=== PATIENT | female | born 1995 | race Caucasian/White ===

== ENCOUNTER 2021-10-12 20:08 | Inpatient (IN) ==
[2021-10-12] MEDS ORDERED: 0.9 % Sodium Chloride 1,000 ML IVC ONE (22:09)
[2021-10-12] MEDS ORDERED: Piperacillin/Tazobactam 3.375 GM in 0.9 % Sodium Chloride Mini Bag 100 ML IVPB ONE (22:11)
[2021-10-12 22:37] LABS: INR 1.7; Prothrombin Time 19.1 Seconds (9.4-12.1)
[2021-10-12 22:40] LABS: Activated Partial Thrombo Time 29.7 Seconds (26.0-36.0)
[2021-10-12 22:41] LABS: Hematocrit 22.3 % (35.3-44.9); Hemoglobin 7.6 g/dL (11.5-15.4); Mean Corpuscular HGB Conc 34.1 g/dL (31.6-35.5); Mean Corpuscular Hemoglobin 24.2 pg (28.0-33.3); Mean Platelet Volume 12.5 fL (9.4-12.4); Red Blood Count 3.14 M/mcL (3.82-4.97); Red Cell Distribution Width 16.8 % (11.5-14.5); White Blood Count 20.9 K/mcL (4.3-11.1)
[2021-10-12 22:52] LABS: Albumin 2.6 g/dL (3.5-5.7); Albumin/Globulin Ratio 0.5 (1.1-2.2); Bilirubin,Direct 1.1 mg/dL (0.0-0.2); Bilirubin,Indirect 0.5 mg/dL (0.0-1.0); Bilirubin,Total 1.6 mg/dL (0.3-1.0); Calcium 7.7 mg/dL (8.6-10.3); Globulin 5.6 g/dL (2.4-3.5); Magnesium 2.5 mg/dL (1.6-2.6); Potassium 3.3 mEq/L (3.5-5.1); Total Protein 8.2 g/dL (6.4-8.9); Troponin I 0.09 ng/mL (< 0.04)
[2021-10-12 22:57] LABS: Platelet Count 95 K/mcL (140-400)
[2021-10-12 22:59] LABS: Hypochromasia Present (Not Present); Ovalocytes 1+ (Not Present)
[2021-10-12 23:02] LABS: Target Cells 1+ (Not Present)
[2021-10-12 23:04] LABS: Lymphocytes # 0.4 K/mcL (0.6-4.6); Monocytes # 0.4 K/mcL (0.0-1.3); Neutrophils # 20.1 K/mcL (1.6-8.9)
[2021-10-12 23:05] LABS: Platelet Estimate Decreased (Normal); Toxic Granulation Present (Not Present)
[2021-10-13 01:00] LABS: Adenovirus Not Detected (Not Detect); Bordetella Pertussis Not Detected (Not Detect); Coronavirus 229E Not Detected (Not Detect); Coronavirus HKU1 Not Detected (Not Detect); Coronavirus NL63 Not Detected (Not Detect); Coronavirus OC43 DETECTED (Not Detect); Human Metapneumovirus Not Detected (Not Detect); Human Rhinovirus/Enterovirus Not Detected (Not Detect); Influenza A Subtype 2009 H1 Not Detected (Not Detect); Influenza B Not Detected (Not Detect); Parainfluenza Virus 1 Not Detected (Not Detect); Parainfluenza Virus 2 Not Detected (Not Detect); Parainfluenza Virus 3 Not Detected (Not Detect); Parainfluenza Virus 4 Not Detected (Not Detect); Respiratory Syncytial Virus Not Detected (Not Detect); SARS-CoV-2 Not Detected (Not Detect)
[2021-10-13 01:01] LABS: Chlamydophila pneumoniae Not Detected (Not Detect); Mycoplasma pneumoniae Not Detected (Not Detect)
[2021-10-13] MEDS ORDERED: Isovue-370 500 ML BOTTLE IVP ONE (01:39)
[2021-10-13] MEDS ORDERED: 0.9 % Sodium Chloride 1,000 ML IVC ONE (03:03)
[2021-10-13] MEDS ORDERED: Ondansetron ODT 4 MG TAB.RAPDIS SL PRN (03:33)
[2021-10-13] MEDS ORDERED: Naloxone 0.4 MG/ML INJ IVP PRN (03:33)
[2021-10-13] MEDS ORDERED: Melatonin 3 MG TABLET PO PRN (03:33)
[2021-10-13] MEDS ORDERED: *HR* LORazepam 2 MG/ML VIAL IVP ONE ×3 (03:41→06:45)
[2021-10-13 03:55] LABS: ABG Base Excess -10 mEq/L (-2 to 3); ABG HCO3 16 mEq/L (21-27); ABG Oxygen Saturation 95 % (95-98); ABG PCO2 31 mmHg (35-45); ABG PH 7.31 pH Units (7.32-7.45); ABG PO2 81 mmHg (85-104); ABG TCO2 17 mEq/L (20-26)
[2021-10-13] MEDS ORDERED: Ondansetron 4 MG/2 ML VIAL IVP PRN (04:42)
[2021-10-13] MEDS ORDERED: Perflutren Lipid Microsphere 1.3 ML in 0.9 % Sodium Chloride 8.7 ML IVP PRN (04:44)
[2021-10-13] MEDS ORDERED: Ipratropium/Albuterol Neb 3 ML IH PRN (04:49)
[2021-10-13] MEDS ORDERED: Vancomycin 1 EACH in 0.9 % Sodium Chloride 250 ML IVPB PRN (06:00)
[2021-10-13] MEDS: Calcium Gluconate 1gm/50mL 1 GM/50 ML BAG IVPB ONE ×2 (06:00→18:31)
[2021-10-13] MEDS: 0.9 % Sodium Chloride 1,000 ML IVC SCH ×3 (06:00→14:15)
[2021-10-13 06:39] LABS: Red Cell Distribution Width 17.1 % (11.5-14.5)
[2021-10-13 06:41] LABS: Estimated Average Glucose 123 mg/dl; Hematocrit 21.2 % (35.3-44.9); Hemoglobin 6.9 g/dL (11.5-15.4); Hemoglobin A1C 5.9 %; Immature Platelets 8.3 % (1.1-6.1); Mean Corpuscular HGB Conc 32.5 g/dL (31.6-35.5); Mean Corpuscular Hemoglobin 23.4 pg (28.0-33.3); Mean Corpuscular Volume 71.9 fL (83.0-100.0); Red Blood Count 2.95 M/mcL (3.82-4.97); White Blood Count 16.8 K/mcL (4.3-11.1)
[2021-10-13 06:43] LABS: Platelet Count 77 K/mcL (140-400)
[2021-10-13] MEDS ORDERED: *HR* LORazepam 2 MG/ML VIAL ONE (06:47)
[2021-10-13 06:48] LABS: Bacteria,Urine Moderate per hpf (None-Few); Bilirubin,Urine Negative (Negative); Blood,Urine Large (Negative); Budding Yeast,Urine Many per hpf (None Seen); Clarity,Urine Ex.Turbid (Clear); Color,Urine Yellow (Yellow); Glucose,Urine (UA) Normal (Normal); Ketones,Urine Negative (Negative); Leukocyte Esterase,Urine Trace (Negative); Nitrite,Urine Negative (Negative); PH,Urine 5.5 pH Units (5.0-8.0); Protein,Urine 70 mg/dL (Neg-Trace); RBC,Urine TNTC per hpf (0-3); Specific Gravity,Urine 1.017 (1.010-1.025); Urobilinogen,Urine Normal (Normal); WBC,Urine 30-50 per hpf (0-3)
[2021-10-13 06:52] LABS: Amphetamine Screen,Urine Negative ng/mL (Cutoff=1000); Barbiturate Screen,Urine Negative ng/mL (Cutoff=200); Benzodiazepines Screen,Urine Negative ng/mL (Cutoff=300); Cannabinoid Screen,Urine Negative ng/mL (Cutoff = 50); Cocaine Screen,Urine Negative ng/mL (Cutoff= 300); Opiate Screen,Urine Negative ng/mL (Cutoff=300); Phencyclidine Screen,Urine Negative ng/mL (Cutoff=25)
[2021-10-13 07:02] LABS: Calcium 7.6 mg/dL (8.6-10.3); Phosphorous 8.7 mg/dL (2.7-4.5); Potassium 3.1 mEq/L (3.5-5.1)
[2021-10-13 07:04] LABS: Albumin 2.4 g/dL (3.5-5.7); Albumin/Globulin Ratio 0.5 (1.1-2.2); Bilirubin,Direct 1.5 mg/dL (0.0-0.2); Bilirubin,Indirect 0.2 mg/dL (0.0-1.0); Bilirubin,Total 1.7 mg/dL (0.3-1.0); Globulin 4.9 g/dL (2.4-3.5); Total Protein 7.3 g/dL (6.4-8.9)
[2021-10-13 07:16] LABS: Thyroid Stimulating Hormone 0.441 mcIU/mL (0.340-5.600)
[2021-10-13 07:17] LABS: Chloride,Urine < 15 mEq/L; Sodium, Urine 10.7 mEq/L
[2021-10-13 07:17] LABS: Cholesterol 58 mg/dL (< 200); HDL Cholesterol < 3 mg/dL (40-59); Triglycerides 179 mg/dL (< 150)
[2021-10-13 07:18] LABS: Iron < 10 mcg/dL (50-170); Lactate Dehydrogenase 335 Units/L (140-271); Transferrin 159 mg/dL (203-362)
[2021-10-13 08:09] LABS: Lymphocytes # 0.3 K/mcL (0.6-4.6); Monocytes # 0.7 K/mcL (0.0-1.3); Neutrophils # 15.8 K/mcL (1.6-8.9)
[2021-10-13 08:11] LABS: Anisocytosis 1+ (Not Present); Hypochromasia Present (Not Present); Platelet Estimate Decreased (Normal)
[2021-10-13] MEDS ORDERED: 0.9 % Sodium Chloride 250 ML IVC SCH (08:15)
[2021-10-13] MEDS ORDERED: FentaNYL (PF) 1,000 MCG/100 ML IV.SOLN ONE (08:24)
[2021-10-13] MEDS ORDERED: Artificial Tears SOLN 15 ML BOTTLE BOTH EYES PRN (08:28)
[2021-10-13 09:00] LABS: Acinetobacter baumannii by PCR Not Detected (Not Detect); Candida albicans by PCR Not Detected (Not Detect); Candida glabrata by PCR Not Detected (Not Detect); Candida krusei by PCR Not Detected (Not Detect); Candida parapsilosis by PCR Not Detected (Not Detect); Candida tropicalis by PCR Not Detected (Not Detect); Enterobacter cloacae Cmplx PCR Not Detected (Not Detect); Enterobacteriaceae by PCR Not Detected (Not Detect); Enterococcus by PCR Not Detected (Not Detect); Escherichia coli by PCR Not Detected (Not Detect); Klebsiella oxytoca by PCR Not Detected (Not Detect); Klebsiella pneumoniae by PCR Not Detected (Not Detect); Proteus by PCR Not Detected (Not Detect); Pseudomonas aeruginosa by PCR Not Detected (Not Detect); Serratia marcescens by PCR Not Detected (Not Detect); Staphylococcus aureus by PCR DETECTED (Not Detect); Streptococcus agalactiae(B)PCR Not Detected (Not Detect); Streptococcus pneumoniae PCR Not Detected (Not Detect); Streptococcus pyogenes (A) PCR DETECTED (Not Detect); mecA Methicillin-Resist Gene Not Detected (Not Detect)
[2021-10-13] MEDS: FentaNYL (PF) 1,000 MCG/100 ML IV.SOLN IVC SCH ×4 (09:00→23:51)
[2021-10-13 09:29] LABS: ABG Base Excess -9 mEq/L (-2 to 3); ABG HCO3 17 mEq/L (21-27); ABG Oxygen Saturation 100 % (95-98); ABG PCO2 40 mmHg (35-45); ABG PH 7.24 pH Units (7.32-7.45); ABG PO2 331 mmHg (85-104); ABG TCO2 19 mEq/L (20-26); Blood Gas Modality ASSIST CONTROL; Blood Gas VT 400 cc
[2021-10-13] MEDS ORDERED: E-Z-HD (BARIUM SULF) SUSPENSION PO ONE (09:41)
[2021-10-13] MEDS ORDERED: E-Z-PAQUE (BARIUM SULF) SUSP 1 BOTTLE PO ONE (09:41)
[2021-10-13] MEDS ORDERED: Simethicone/Sodium Bic/Citr Ac 1 EACH GRAN.EF.PK PO ONE (09:41)
[2021-10-13] MEDS ORDERED: Permethrin Cream Rinse 60 ML LIQUID TP ONE (10:33)
[2021-10-13] MEDS: Piperacillin/Tazobactam 3.375 GM in 0.9 % Sodium Chloride Mini Bag 100 ML IVPB SCH ×2 (10:51→22:42)
[2021-10-13] MEDS: Pantoprazole 40 MG VIAL IVP SCH (10:52)
[2021-10-13] MEDS: Clindamycin 900 MG/50 ML 900 MG/50 ML IV.SOLN IVPB SCH ×2 (10:53→17:39)
[2021-10-13] MEDS: Chlorhexidine Rinse 15 ML MOUTHWASH MM SCH ×2 (10:53→19:55)
[2021-10-13] MEDS: Artificial Tears SOLN 15 ML BOTTLE BOTH EYES SCH ×4 (11:25→23:49)
[2021-10-13 12:02] LABS: VBG Ionized Calcium 0.96 mmol/L (1.15-1.35)
[2021-10-13 12:02] LABS: Hematocrit 18.9 % (35.3-44.9); Hemoglobin 6.1 g/dL (11.5-15.4); Mean Corpuscular HGB Conc 32.3 g/dL (31.6-35.5); Mean Corpuscular Hemoglobin 23.2 pg (28.0-33.3); Mean Corpuscular Volume 71.9 fL (83.0-100.0); Red Blood Count 2.63 M/mcL (3.82-4.97); Red Cell Distribution Width 17.2 % (11.5-14.5); White Blood Count 12.9 K/mcL (4.3-11.1)
[2021-10-13 12:04] LABS: Platelet Count 71 K/mcL (140-400)
[2021-10-13 12:24] LABS: Albumin 2.2 g/dL (3.5-5.7); Albumin/Globulin Ratio 0.5 (1.1-2.2); Bilirubin,Direct 1.1 mg/dL (0.0-0.2); Bilirubin,Indirect 0.4 mg/dL (0.0-1.0); Bilirubin,Total 1.5 mg/dL (0.3-1.0); Calcium 7.3 mg/dL (8.6-10.3); Globulin 4.5 g/dL (2.4-3.5); Magnesium 2.5 mg/dL (1.6-2.6); Phosphorous 8.6 mg/dL (2.7-4.5); Total Protein 6.7 g/dL (6.4-8.9)
[2021-10-13 12:35] LABS: Lymphocytes # 1.3 K/mcL (0.6-4.6); Monocytes # 0.3 K/mcL (0.0-1.3); Neutrophils # 11.4 K/mcL (1.6-8.9); Platelet Estimate Decreased (Normal)
[2021-10-13 12:36] LABS: Anisocytosis 1+ (Not Present); Hypochromasia Present (Not Present)
[2021-10-13] MEDS: *HR* Heparin 5,000 UNIT/ML VIAL SQ SCH ×2 (13:14→17:40)
[2021-10-13] MEDS ORDERED: Potassium Chloride Elixir 20 MEQ/15 ML UDC GTUBE ONE (14:22)
[2021-10-13] MEDS ORDERED: Calcium Gluconate 1gm/50mL 1 GM/50 ML BAG IVPB SCH (14:30)
[2021-10-13 15:20] LABS: INR 1.9; Prothrombin Time 20.6 Seconds (9.4-12.1)
[2021-10-13 15:23] LABS: Activated Partial Thrombo Time 29.1 Seconds (26.0-36.0)
[2021-10-13 16:06] LABS: Hepatitis B Surface Antigen Nonreactive (Nonreactive)
[2021-10-13 16:35] LABS: HIV-1&2 Antibody & p24 Ag Nonreactive (Nonreactive)
[2021-10-13 16:36] LABS: Hepatitis A Antibody IgM Nonreactive (Nonreactive); Hepatitis B Core IgM Nonreactive (Nonreactive)
[2021-10-13] MEDS: Norepinephrine 4 MG/254 ML IV.SOLN IVC SCH ×3 (17:30→23:48)
[2021-10-13 17:59] LABS: Hepatitis C Virus Antibody Reactive (Nonreactive)
[2021-10-13] MEDS ORDERED: *HR* Propofol 200 MG/20 ML VIAL IVP ONE (21:37)
[2021-10-13] MEDS ORDERED: *HR* Midazolam HCl 5 MG/5 ML VIAL IVP ONE (21:37)
[2021-10-13] MEDS ORDERED: *HR* Midazolam HCl 2 MG/2 ML VIAL IVP ONE (21:37)
[2021-10-13] MEDS ORDERED: *HR* Etomidate 20 MG/10 ML AMPUL IVP ONE (21:37)
[2021-10-13 22:25] LABS: Appearance of Body Fluid Hazy (Clear); Source of Body Fluid RIGHT UPPER LOBE LUN; Volume of Body Fluid 25 mL
[2021-10-14] MEDS: Clindamycin 900 MG/50 ML 900 MG/50 ML IV.SOLN IVPB SCH ×3 (02:06→20:09)
[2021-10-14 03:10] LABS: VBG Ionized Calcium 1.01 mmol/L (1.15-1.35)
[2021-10-14 03:29] LABS: Hematocrit 23.4 % (35.3-44.9); Immature Platelets 6.8 % (1.1-6.1); Mean Corpuscular HGB Conc 32.5 g/dL (31.6-35.5); Mean Corpuscular Hemoglobin 24.1 pg (28.0-33.3); Mean Corpuscular Volume 74.1 fL (83.0-100.0); Mean Platelet Volume 11.7 fL (9.4-12.4); Nucleated Red Blood Cells 0.1 /100 WBC (0); Red Blood Count 3.16 M/mcL (3.82-4.97); Red Cell Distribution Width 17.3 % (11.5-14.5); White Blood Count 21.5 K/mcL (4.3-11.1)
[2021-10-14] MEDS: Artificial Tears SOLN 15 ML BOTTLE BOTH EYES SCH ×6 (03:38→23:32)
[2021-10-14 03:41] LABS: Platelet Count 89 K/mcL (140-400)
[2021-10-14 03:42] LABS: Hemoglobin 7.6 g/dL (11.5-15.4)
[2021-10-14 03:47] LABS: Blood Urea Nitrogen > 130 mg/dL (6-20); Calcium 7.6 mg/dL (8.6-10.3); Carbon Dioxide 14 mEq/L (23-29); Chloride 101 mEq/L (98-107); Creatine Kinase 22 Units/L (30-223); Glucose 119 mg/dL (70-105); Magnesium 2.8 mg/dL (1.6-2.6); Phosphorous 8.1 mg/dL (2.7-4.5); Potassium 3.4 mEq/L (3.5-5.1); Sodium 132 mEq/L (136-145); eGFR For African Americans 14 (> 60); eGFR For Non-African Americans 11 (> 60)
[2021-10-14 03:54] LABS: ABG Base Excess -11 mEq/L (-2 to 3); ABG HCO3 15 mEq/L (21-27); ABG Oxygen Saturation 99 % (95-98); ABG PCO2 34 mmHg (35-45); ABG PH 7.25 pH Units (7.32-7.45); ABG PO2 153 mmHg (85-104); ABG TCO2 16 mEq/L (20-26); Blood Gas VT 450 cc
[2021-10-14] MEDS: FentaNYL (PF) 1,000 MCG/100 ML IV.SOLN IVC SCH ×2 (04:17→09:22)
[2021-10-14] MEDS: Norepinephrine 4 MG/254 ML IV.SOLN IVC SCH ×3 (04:18→13:41)
[2021-10-14 04:27] LABS: Lymphocytes # 2.2 K/mcL (0.6-4.6); Monocytes # 0.2 K/mcL (0.0-1.3); Neutrophils # 19.1 K/mcL (1.6-8.9); Platelet Estimate Decreased (Normal)
[2021-10-14] MEDS: *HR* Heparin 5,000 UNIT/ML VIAL SQ SCH (05:49)
[2021-10-14] MEDS: Potassium Chloride 40 MEQ/200 ML BAG IVPB PRN ×4 (05:50→23:39)
[2021-10-14] MEDS: Calcium Gluconate 1gm/50mL 1 GM/50 ML BAG IVPB PRN ×3 (06:22→23:39)
[2021-10-14] MEDS: Sodium Bicarbonate 150 MEQ in D5% in Water 1,000 ML IVC SCH ×2 (06:41→21:49)
[2021-10-14] MEDS: Chlorhexidine Rinse 15 ML MOUTHWASH MM SCH ×2 (08:32→20:09)
[2021-10-14] MEDS: Pantoprazole 40 MG VIAL IVP SCH (08:32)
[2021-10-14] MEDS: Piperacillin/Tazobactam 3.375 GM in 0.9 % Sodium Chloride Mini Bag 100 ML IVPB SCH ×2 (10:30→23:18)
[2021-10-14] MEDS ORDERED: 0.9 % Sodium Chloride 1,000 ML PRIME ONE ×2 (12:25)
[2021-10-14] MEDS ORDERED: *HR* Heparin 5,000 UNIT/ML VIAL IVP PRN ×5 (12:25→13:33)
[2021-10-14] MEDS ORDERED: *HR* Alteplase (Cathflo) 2 MG VIAL IVP PRN (12:25)
[2021-10-14] MEDS ORDERED: Heparin 25,000UNIT/250ML 1/2NS 25,000 UNIT/250 ML IV.SOLN IVC SCH ×2 (12:30→14:15)
[2021-10-14] MEDS ORDERED: 0.9 % Sodium Chloride 1,000 ML PRIME SCH (12:30)
[2021-10-14] MEDS ORDERED: Vancomycin 1,250 MG/262.5 ML IV.SOLN IVPB ONE (13:00)
[2021-10-14] MEDS ORDERED: Vancomycin 500 MG in 0.9 % Sodium Chloride Mini Bag 100 ML IVPB ONE ×2 (14:00→16:00)
[2021-10-14] MEDS: PrismaSATE BGK 4/2.5 5,000 ML CRRT SCH ×6 (14:45→22:43)
[2021-10-14 15:07] LABS: VBG Ionized Calcium 0.98 mmol/L (1.15-1.35)
[2021-10-14 15:22] LABS: Albumin/Globulin Ratio 0.5 (1.1-2.2); Bilirubin,Total 1.4 mg/dL (0.3-1.0); Calcium 7.1 mg/dL (8.6-10.3); Globulin 4.3 g/dL (2.4-3.5); Magnesium 2.7 mg/dL (1.6-2.6); Potassium 3.3 mEq/L (3.5-5.1); Total Protein 6.3 g/dL (6.4-8.9)
[2021-10-14] MEDS: Norepinephrine 8 MG/258 ML IV.SOLN IVC SCH (17:01)
[2021-10-14 18:20] LABS: Hemoglobin 7.4 g/dL (11.5-15.4); Red Cell Distribution Width 17.8 % (11.5-14.5)
[2021-10-14 18:21] LABS: Hematocrit 22.7 % (35.3-44.9); Immature Platelets 7.4 % (1.1-6.1); Mean Corpuscular HGB Conc 32.6 g/dL (31.6-35.5); Mean Corpuscular Hemoglobin 23.9 pg (28.0-33.3); Mean Corpuscular Volume 73.2 fL (83.0-100.0); Mean Platelet Volume 11.5 fL (9.4-12.4); Red Blood Count 3.1 M/mcL (3.82-4.97); White Blood Count 15.1 K/mcL (4.3-11.1)
[2021-10-14 18:32] LABS: Heparin anti-factor XA UFH < 0.04 IU/mL (0.30-0.70); INR 1.5; Prothrombin Time 16.4 Seconds (9.4-12.1)
[2021-10-14] MEDS: Vasopressin 40 UNIT in D5% in Water 100 ML IVC SCH (19:22)
[2021-10-14] MEDS: Dexmedetomidine HCl 400 MCG/100 ML MLS IVC SCH (19:22)
[2021-10-14] MEDS: Phenylephrine 10 MG in 0.9 % Sodium Chloride 250 ML IVC SCH (19:22)
[2021-10-14] MEDS: FentaNYL (PF) 2,500 MCG/50 ML IV.SOLN IVC SCH ×2 (19:23→20:08)
[2021-10-14 22:25] LABS: VBG Ionized Calcium 1.03 mmol/L (1.15-1.35)
[2021-10-14 22:44] LABS: Calcium 7.2 mg/dL (8.6-10.3); Potassium 3.6 mEq/L (3.5-5.1)
[2021-10-15] MEDS: FentaNYL (PF) 2,500 MCG/50 ML IV.SOLN IVC SCH ×2 (01:55→13:42)
[2021-10-15] MEDS: Norepinephrine 8 MG/258 ML IV.SOLN IVC SCH ×4 (02:27→22:00)
[2021-10-15] MEDS: Clindamycin 900 MG/50 ML 900 MG/50 ML IV.SOLN IVPB SCH ×3 (02:29→17:30)
[2021-10-15] MEDS: PrismaSATE BGK 4/2.5 5,000 ML CRRT SCH ×12 (02:49→23:14)
[2021-10-15] MEDS: Artificial Tears SOLN 15 ML BOTTLE BOTH EYES SCH ×6 (03:17→23:54)
[2021-10-15 03:59] LABS: Hematocrit 24.4 % (35.3-44.9); Hemoglobin 8.1 g/dL (11.5-15.4); Mean Corpuscular HGB Conc 33.2 g/dL (31.6-35.5); Mean Corpuscular Hemoglobin 23.8 pg (28.0-33.3); Mean Corpuscular Volume 71.8 fL (83.0-100.0); Mean Platelet Volume 11.4 fL (9.4-12.4); Red Cell Distribution Width 17.8 % (11.5-14.5); White Blood Count 13.2 K/mcL (4.3-11.1)
[2021-10-15 04:00] LABS: Platelet Count 75 K/mcL (140-400)
[2021-10-15 04:16] LABS: VBG Ionized Calcium 1.04 mmol/L (1.15-1.35)
[2021-10-15 04:19] LABS: BUN/Creatinine Ratio 25 (6-26); Blood Urea Nitrogen 62 mg/dL (6-20); Calcium 7.5 mg/dL (8.6-10.3); Carbon Dioxide 22 mEq/L (23-29); Chloride 100 mEq/L (98-107); Glucose 114 mg/dL (70-105); Magnesium 2.3 mg/dL (1.6-2.6); Osmolality,Calculated 292 (280-300); Phosphorous 2.8 mg/dL (2.7-4.5); Potassium 4.1 mEq/L (3.5-5.1); Sodium 132 mEq/L (136-145); eGFR For African Americans 28 (> 60); eGFR For Non-African Americans 23 (> 60)
[2021-10-15 04:30] LABS: Lymphocytes # 1.3 K/mcL (0.6-4.6); Monocytes # 0.1 K/mcL (0.0-1.3); Neutrophils # 11.8 K/mcL (1.6-8.9); Platelet Estimate Decreased (Normal); Reactive Lymphocytes Present (Not Present)
[2021-10-15 04:55] LABS: ABG Base Excess 0 mEq/L (-2 to 3); ABG HCO3 23 mEq/L (21-27); ABG Oxygen Saturation 97 % (95-98); ABG PCO2 32 mmHg (35-45); ABG PH 7.47 pH Units (7.32-7.45); ABG PO2 81 mmHg (85-104); ABG TCO2 24 mEq/L (20-26); Blood Gas Modality ASSIST CONTROL; Blood Gas VT 450 cc
[2021-10-15] MEDS: Calcium Gluconate 1gm/50mL 1 GM/50 ML BAG IVPB PRN ×2 (06:10→22:30)
[2021-10-15] MEDS: Pantoprazole 40 MG VIAL IVP SCH (07:57)
[2021-10-15] MEDS: Chlorhexidine Rinse 15 ML MOUTHWASH MM SCH ×3 (07:57→20:17)
[2021-10-15 08:13] LABS: Troponin I < 0.03 ng/mL (< 0.04)
[2021-10-15] MEDS: *HR* Heparin 5,000 UNIT/ML VIAL SQ SCH ×2 (09:39→17:30)
[2021-10-15] MEDS: Piperacillin/Tazobactam 3.375 GM in 0.9 % Sodium Chloride Mini Bag 100 ML IVPB SCH (11:50)
[2021-10-15] MEDS: Vasopressin 40 UNIT in D5% in Water 100 ML IVC SCH (12:52)
[2021-10-15] MEDS: Phenylephrine 10 MG in 0.9 % Sodium Chloride 250 ML IVC SCH (12:53)
[2021-10-15] MEDS: Dexmedetomidine HCl 400 MCG/100 ML MLS IVC SCH (12:54)
[2021-10-15 14:05] LABS: Hemoglobin 8.4 g/dL (11.5-15.4)
[2021-10-15 14:07] LABS: Hematocrit 25.5 % (35.3-44.9); Immature Platelets 12.2 % (1.1-6.1); Mean Corpuscular HGB Conc 32.9 g/dL (31.6-35.5); Mean Corpuscular Hemoglobin 23.8 pg (28.0-33.3); Mean Corpuscular Volume 72.2 fL (83.0-100.0); Mean Platelet Volume 11.2 fL (9.4-12.4); Red Blood Count 3.53 M/mcL (3.82-4.97); Red Cell Distribution Width 18.1 % (11.5-14.5); White Blood Count 20.2 K/mcL (4.3-11.1)
[2021-10-15 14:17] LABS: INR 1.5
[2021-10-15 14:18] LABS: Platelet Count 71 K/mcL (140-400)
[2021-10-15 14:20] LABS: Activated Partial Thrombo Time 31.8 Seconds (26.0-36.0)
[2021-10-15 14:26] LABS: BUN/Creatinine Ratio 20 (6-26); Blood Urea Nitrogen 39 mg/dL (6-20); Calcium 7.5 mg/dL (8.6-10.3); Carbon Dioxide 23 mEq/L (23-29); Chloride 100 mEq/L (98-107); Cholesterol 75 mg/dL (< 200); Glucose 115 mg/dL (70-105); HDL Cholesterol < 3 mg/dL (40-59); Osmolality,Calculated 282 (280-300); Potassium 4.2 mEq/L (3.5-5.1); Sodium 131 mEq/L (136-145); Triglycerides 248 mg/dL (< 150); eGFR For African Americans 37 (> 60); eGFR For Non-African Americans 31 (> 60)
[2021-10-15 14:28] LABS: Estimated Average Glucose 126 mg/dl
[2021-10-15 14:33] LABS: Eosinophils # 0.2 K/mcL (0.0-0.6); Lymphocytes # 4.2 K/mcL (0.6-4.6); Monocytes # 0.8 K/mcL (0.0-1.3); Reactive Lymphocytes Present (Not Present)
[2021-10-15 14:34] LABS: Anisocytosis 1+ (Not Present); Hypochromasia Present (Not Present); Platelet Estimate Slight Decrease (Normal)
[2021-10-15 14:35] LABS: Target Cells 1+ (Not Present)
[2021-10-15 15:04] LABS: Vancomycin,Random 7 mcg/mL
[2021-10-15] MEDS: ceFAZolin 2,000 MG in 0.9 % Sodium Chloride 100 ML IVPB SCH (17:30)
[2021-10-15 21:40] LABS: VBG Ionized Calcium 1.01 mmol/L (1.15-1.35)
[2021-10-16] MEDS: Clindamycin 900 MG/50 ML 900 MG/50 ML IV.SOLN IVPB SCH ×2 (02:27→11:30)
[2021-10-16] MEDS: FentaNYL (PF) 2,500 MCG/50 ML IV.SOLN IVC SCH (02:27)
[2021-10-16] MEDS: PrismaSATE BGK 4/2.5 5,000 ML CRRT SCH ×2 (03:14)
[2021-10-16] MEDS: Artificial Tears SOLN 15 ML BOTTLE BOTH EYES SCH ×4 (03:26→20:58)
[2021-10-16 03:32] LABS: Hemoglobin 8.2 g/dL (11.5-15.4); Red Cell Distribution Width 18.8 % (11.5-14.5)
[2021-10-16 03:34] LABS: Basophils % 0.2 %; Eosinophils # 0.1 K/mcL (0.0-0.6); Eosinophils % 0.5 %; Hematocrit 25.7 % (35.3-44.9); Immature Granulocytes % 2.1 % (0-4); Immature Platelets 10.9 % (1.1-6.1); Lymphocytes # 2.4 K/mcL (0.6-4.6); Lymphocytes % 12.5 %; Mean Corpuscular HGB Conc 31.9 g/dL (31.6-35.5); Mean Corpuscular Hemoglobin 23.8 pg (28.0-33.3); Mean Corpuscular Volume 74.5 fL (83.0-100.0); Mean Platelet Volume 11.4 fL (9.4-12.4); Monocytes # 0.4 K/mcL (0.0-1.3); Monocytes % 1.9 %; Neutrophils # 15.7 K/mcL (1.6-8.9); Nucleated Red Blood Cells 0.2 /100 WBC (0); Red Blood Count 3.45 M/mcL (3.82-4.97); Segmented Neutrophils % 82.8 %; White Blood Count 18.9 K/mcL (4.3-11.1)
[2021-10-16 03:39] LABS: Platelet Count 85 K/mcL (140-400)
[2021-10-16 03:40] LABS: VBG Ionized Calcium 1.07 mmol/L (1.15-1.35)
[2021-10-16 03:51] LABS: Albumin 2.1 g/dL (3.5-5.7); Albumin/Globulin Ratio 0.4 (1.1-2.2); Bilirubin,Total 1.4 mg/dL (0.3-1.0); Calcium 7.6 mg/dL (8.6-10.3); Magnesium 2.3 mg/dL (1.6-2.6); Phosphorous 2.8 mg/dL (2.7-4.5); Potassium 4.4 mEq/L (3.5-5.1); Total Protein 7.1 g/dL (6.4-8.9)
[2021-10-16 03:59] LABS: ABG Base Excess 0 mEq/L (-2 to 3); ABG HCO3 24 mEq/L (21-27); ABG Oxygen Saturation 96 % (95-98); ABG PCO2 34 mmHg (35-45); ABG PH 7.45 pH Units (7.32-7.45); ABG PO2 77 mmHg (85-104); ABG TCO2 25 mEq/L (20-26); Blood Gas VT 450 cc
[2021-10-16 04:01] LABS: Activated Partial Thrombo Time 30.6 Seconds (26.0-36.0); INR 1.4; Prothrombin Time 15.8 Seconds (9.4-12.1)
[2021-10-16 04:30] LABS: Hypochromasia Present (Not Present); Platelet Estimate Decreased (Normal)
[2021-10-16 04:31] LABS: Anisocytosis 1+ (Not Present)
[2021-10-16] MEDS: Calcium Gluconate 1gm/50mL 1 GM/50 ML BAG IVPB PRN (04:42)
[2021-10-16] MEDS: Norepinephrine 8 MG/258 ML IV.SOLN IVC SCH ×2 (04:52→14:59)
[2021-10-16] MEDS: ceFAZolin 2,000 MG in 0.9 % Sodium Chloride 100 ML IVPB SCH (05:46)
[2021-10-16] MEDS: *HR* Heparin 5,000 UNIT/ML VIAL SQ SCH (05:47)
[2021-10-16] MEDS: Chlorhexidine Rinse 15 ML MOUTHWASH MM SCH ×2 (05:52→07:49)
[2021-10-16] MEDS ORDERED: Aspirin 81 MG TAB.CHEW PO ONE (06:00)
[2021-10-16] MEDS ORDERED: Vancomycin 1,250 MG/262.5 ML IV.SOLN IVPB ONE (06:00)
[2021-10-16] MEDS ORDERED: *HR* Vasopressin 20 UNIT/ML VIAL ONE (06:45)
[2021-10-16] MEDS ORDERED: NiCARdipine 2.5 MG/10 ML Syringe IVPB ONE (06:46)
[2021-10-16] MEDS ORDERED: *HR* FentaNYL (PF) 1,000 MCG/20 ML VIAL ONE (06:49)
[2021-10-16] MEDS ORDERED: *HR* Midazolam HCl 5 MG/5 ML VIAL IVP ONE (06:49)
[2021-10-16] MEDS ORDERED: Lidocaine 2% Syringe 100 MG/5 ML ONE (06:50)
[2021-10-16] MEDS ORDERED: *HR* Magnesium Sulfate 1 GM/2 ML VIAL ONE ×2 (06:50→12:40)
[2021-10-16] MEDS ORDERED: Famotidine 20 MG/2 ML VIAL ONE (06:50)
[2021-10-16] MEDS ORDERED: *HR* Rocuronium Bromide 50 MG/5 ML VIAL ONE ×4 (06:50→13:19)
[2021-10-16] MEDS ORDERED: Tranexamic Acid 1,000 MG/10 ML VIAL ONE (06:50)
[2021-10-16] MEDS ORDERED: *HR* Etomidate 20 MG/10 ML AMPUL IVP ONE (06:52)
[2021-10-16] MEDS ORDERED: SODIUM CHLORIDE IRRIGATION IR ONE ×2 (07:30→14:44)
[2021-10-16] MEDS ORDERED: del Nido Cardioplegia Solution PF ONE (07:30)
[2021-10-16] MEDS ORDERED: HEPARIN IR ONE ×2 (07:30→14:44)
[2021-10-16] MEDS ORDERED: Heparin 15,000 UNIT in 0.9 % Sodium Chloride 500 ML IV ONE ×2 (07:30→14:44)
[2021-10-16] MEDS ORDERED: Norepinephrine 4 MG in 0.9 % Sodium Chloride 250 ML IVC PRN ×2 (07:30→14:44)
[2021-10-16] MEDS ORDERED: del Nido Cardioplegia Solution PF SCH (07:30)
[2021-10-16] MEDS ORDERED: Buckersberg's Blood Cardioplegia PF SCH (07:30)
[2021-10-16] MEDS: Pantoprazole 40 MG VIAL IVP SCH (07:49)
[2021-10-16 08:43] LABS: ABG Base Excess -2 mEq/L (-2 to 3); ABG Chloride 104 mEq/L (98-107); ABG Glucose 93 mg/dL (60-95); ABG HCO3 24 mEq/L (21-27); ABG Ionized Calcium 1.16 mmol/L (1.15-1.35); ABG Oxygen Saturation 99 % (95-98); ABG PCO2 49 mmHg (35-45); ABG PO2 147 mmHg (85-104); ABG TCO2 26 mEq/L (20-26)
[2021-10-16 09:47] LABS: ABG Base Excess -4 mEq/L (-2 to 3); ABG Chloride 105 mEq/L (98-107); ABG Glucose 94 mg/dL (60-95); ABG HCO3 23 mEq/L (21-27); ABG Ionized Calcium 1.12 mmol/L (1.15-1.35); ABG Oxygen Saturation 95 % (95-98); ABG PCO2 48 mmHg (35-45); ABG PH 7.28 pH Units (7.32-7.45); ABG PO2 84 mmHg (85-104); ABG TCO2 24 mEq/L (20-26)
[2021-10-16 10:18] LABS: ABG Base Excess -4 mEq/L (-2 to 3); ABG Chloride 100 mEq/L (98-107); ABG Glucose 113 mg/dL (60-95); ABG HCO3 23 mEq/L (21-27); ABG Ionized Calcium 1.06 mmol/L (1.15-1.35); ABG Oxygen Saturation 100 % (95-98); ABG PCO2 54 mmHg (35-45); ABG PH 7.24 pH Units (7.32-7.45); ABG PO2 583 mmHg (85-104); ABG TCO2 25 mEq/L (20-26)
[2021-10-16] MEDS ORDERED: *HR* Propofol 200 MG/20 ML VIAL IVP ONE (10:28)
[2021-10-16] MEDS ORDERED: Protamine Sulfate 250 MG/25 ML VIAL IVP ONE (10:49)
[2021-10-16] MEDS ORDERED: Calcium Gluconate 1,000 MG/10 ML VIAL ONE (10:49)
[2021-10-16 10:50] LABS: ABG Base Excess -7 mEq/L (-2 to 3); ABG Chloride 101 mEq/L (98-107); ABG Glucose 183 mg/dL (60-95); ABG HCO3 20 mEq/L (21-27); ABG Oxygen Saturation 99 % (95-98); ABG PCO2 44 mmHg (35-45); ABG PH 7.26 pH Units (7.32-7.45); ABG PO2 160 mmHg (85-104); ABG TCO2 21 mEq/L (20-26)
[2021-10-16] MEDS ORDERED: Albumin Human 5% 12.5 GM/250 ML IV.SOLN ONE (10:59)
[2021-10-16 11:18] LABS: ABG Base Excess -8 mEq/L (-2 to 3); ABG Chloride 99 mEq/L (98-107); ABG Glucose 153 mg/dL (60-95); ABG HCO3 18 mEq/L (21-27); ABG Ionized Calcium 1.12 mmol/L (1.15-1.35); ABG Oxygen Saturation 100 % (95-98); ABG PCO2 34 mmHg (35-45); ABG PH 7.32 pH Units (7.32-7.45); ABG PO2 539 mmHg (85-104); ABG TCO2 19 mEq/L (20-26)
[2021-10-16] MEDS ORDERED: Clindamycin 900 MG/50 ML 900 MG/50 ML IV.SOLN IVPB ONE (11:26)
[2021-10-16 11:44] LABS: ABG Base Excess -8 mEq/L (-2 to 3); ABG Chloride 101 mEq/L (98-107); ABG Glucose 107 mg/dL (60-95); ABG HCO3 20 mEq/L (21-27); ABG Ionized Calcium 1.06 mmol/L (1.15-1.35); ABG Oxygen Saturation 100 % (95-98); ABG PCO2 52 mmHg (35-45); ABG PO2 464 mmHg (85-104); ABG TCO2 22 mEq/L (20-26)
[2021-10-16] MEDS ORDERED: *HR* Dextrose 50 % in Water (Syg) 50 ML SYRINGE ONE ×3 (11:45→14:00)
[2021-10-16 12:10] LABS: ABG Base Excess -13 mEq/L (-2 to 3); ABG Chloride 101 mEq/L (98-107); ABG Glucose 160 mg/dL (60-95); ABG HCO3 15 mEq/L (21-27); ABG Ionized Calcium 1.19 mmol/L (1.15-1.35); ABG Oxygen Saturation 100 % (95-98); ABG PCO2 43 mmHg (35-45); ABG PH 7.15 pH Units (7.32-7.45); ABG PO2 475 mmHg (85-104); ABG TCO2 17 mEq/L (20-26)
[2021-10-16 12:35] LABS: ABG Base Excess -12 mEq/L (-2 to 3); ABG Chloride 102 mEq/L (98-107); ABG Glucose 102 mg/dL (60-95); ABG HCO3 16 mEq/L (21-27); ABG Ionized Calcium 1.11 mmol/L (1.15-1.35); ABG Oxygen Saturation 100 % (95-98); ABG PCO2 45 mmHg (35-45); ABG PH 7.16 pH Units (7.32-7.45); ABG PO2 504 mmHg (85-104); ABG TCO2 18 mEq/L (20-26)
[2021-10-16 12:52] LABS: ABG Base Excess 1 mEq/L (-2 to 3); ABG Chloride 97 mEq/L (98-107); ABG Glucose 62 mg/dL (60-95); ABG HCO3 26 mEq/L (21-27); ABG Ionized Calcium 1.06 mmol/L (1.15-1.35); ABG Oxygen Saturation 100 % (95-98); ABG PCO2 43 mmHg (35-45); ABG PO2 485 mmHg (85-104); ABG TCO2 28 mEq/L (20-26)
[2021-10-16 13:15] LABS: ABG Base Excess -8 mEq/L (-2 to 3); ABG Chloride 103 mEq/L (98-107); ABG Glucose 51 mg/dL (60-95); ABG HCO3 20 mEq/L (21-27); ABG Ionized Calcium 1.17 mmol/L (1.15-1.35); ABG Oxygen Saturation 84 % (95-98); ABG PCO2 54 mmHg (35-45); ABG PH 7.17 pH Units (7.32-7.45); ABG PO2 62 mmHg (85-104); ABG TCO2 21 mEq/L (20-26)
[2021-10-16 14:01] LABS: ABG Base Excess -9 mEq/L (-2 to 3); ABG Chloride 105 mEq/L (98-107); ABG Glucose 58 mg/dL (60-95); ABG HCO3 20 mEq/L (21-27); ABG Ionized Calcium 1.02 mmol/L (1.15-1.35); ABG Oxygen Saturation 76 % (95-98); ABG PCO2 62 mmHg (35-45); ABG PH 7.11 pH Units (7.32-7.45); ABG PO2 55 mmHg (85-104); ABG TCO2 22 mEq/L (20-26)
[2021-10-16] MEDS ORDERED: Potassium Chloride 40 MEQ/200 ML BAG IVPB PRN ×3 (14:06→14:44)
[2021-10-16] MEDS ORDERED: *HR* Dextrose 50 % in Water (Syg) 50 ML SYRINGE IVP PRN (14:06)
[2021-10-16] MEDS ORDERED: *HR* Promethazine 25 MG/ML VIAL IM PRN ×2 (14:06→14:44)
[2021-10-16] MEDS ORDERED: Insulin Regular, Human 100 UNIT/ML IV PRN ×2 (14:06→14:44)
[2021-10-16] MEDS ORDERED: Norepinephrine 4 MG/254 ML IV.SOLN IVC SCH ×2 (14:15→14:44)
[2021-10-16] MEDS: Vasopressin 40 UNIT in D5% in Water 100 ML IVC SCH ×3 (14:20→20:56)
[2021-10-16] MEDS ORDERED: Vasopressin 40 UNIT in D5% in Water 100 ML IVC SCH (14:21)
[2021-10-16] MEDS ORDERED: Albumin Human 5% 12.5 GM/250 ML IV.SOLN IVC SCH (14:30)
[2021-10-16 14:43] LABS: ABG Base Excess -6 mEq/L (-2 to 3); ABG HCO3 23 mEq/L (21-27); ABG Oxygen Saturation 73 % (95-98); ABG PCO2 75 mmHg (35-45); ABG PH 7.09 pH Units (7.32-7.45); ABG PO2 54 mmHg (85-104); ABG TCO2 25 mEq/L (20-26); Blood Gas Modality AF; Blood Gas VT 450 cc
[2021-10-16] MEDS ORDERED: FentaNYL (PF) 2,500 MCG/50 ML IV.SOLN IVC SCH (14:44)
[2021-10-16] MEDS ORDERED: Dexmedetomidine HCl 400 MCG/100 ML MLS IVC SCH (14:44)
[2021-10-16] MEDS ORDERED: Ipratropium/Albuterol Neb 3 ML IH PRN (14:44)
[2021-10-16] MEDS ORDERED: Norepinephrine 8 MG/258 ML IV.SOLN IVC SCH (14:44)
[2021-10-16] MEDS ORDERED: Naloxone 0.4 MG/ML INJ IVP PRN (14:44)
[2021-10-16] MEDS ORDERED: Phenylephrine 10 MG in 0.9 % Sodium Chloride 250 ML IVC SCH (14:44)
[2021-10-16] MEDS ORDERED: Perflutren Lipid Microsphere 1.3 ML in 0.9 % Sodium Chloride 8.7 ML IVP PRN (14:44)
[2021-10-16] MEDS ORDERED: PrismaSATE BGK 4/2.5 5,000 ML CRRT SCH ×2 (14:44)
[2021-10-16] MEDS ORDERED: 0.9 % Sodium Chloride 1,000 ML PRIME SCH (14:44)
[2021-10-16] MEDS ORDERED: Ondansetron 4 MG/2 ML VIAL IVP PRN (14:44)
[2021-10-16] MEDS ORDERED: Melatonin 3 MG TABLET PO PRN (14:44)
[2021-10-16] MEDS ORDERED: Sodium Bicarbonate 10 MEQ, Potassium Chloride 80 MEQ in CARDIOPLEGIC SOLUTION NO.1 1,00... PF SCH (14:44)
[2021-10-16] MEDS ORDERED: Artificial Tears SOLN 15 ML BOTTLE BOTH EYES PRN (14:44)
[2021-10-16] MEDS ORDERED: Mannitol 25% vial 3.25 GM, Magnesium Sulfate 2 GM, Sodium Bicarbonate 13 MEQ, Potassium... PF ONE (14:44)
[2021-10-16] MEDS ORDERED: *HR* Alteplase (Cathflo) 2 MG VIAL IVP PRN (14:44)
[2021-10-16] MEDS ORDERED: Mannitol 25% vial 3.25 GM, Magnesium Sulfate 2 GM, Sodium Bicarbonate 13 MEQ, Potassium... PF SCH (14:44)
[2021-10-16] MEDS ORDERED: Calcium Gluconate 1gm/50mL 1 GM/50 ML BAG IVPB PRN (14:44)
[2021-10-16] MEDS ORDERED: Ondansetron ODT 4 MG TAB.RAPDIS SL PRN (14:44)
[2021-10-16] MEDS ORDERED: Sodium Bicarbonate 150 MEQ in D5% in Water 1,000 ML IVC SCH ×2 (14:45)
[2021-10-16] MEDS ORDERED: Cisatracurium 200 MG in 0.9 % Sodium Chloride 180 ML IVC SCH ×2 (14:45)
[2021-10-16] MEDS: Albumin Human 5% 12.5 GM/250 ML IV.SOLN IVC SCH ×3 (15:25→20:03)
[2021-10-16 15:29] LABS: ABG Base Excess -11 mEq/L (-2 to 3); ABG HCO3 17 mEq/L (21-27); ABG Oxygen Saturation 89 % (95-98); ABG PCO2 48 mmHg (35-45); ABG PH 7.17 pH Units (7.32-7.45); ABG PO2 73 mmHg (85-104); ABG TCO2 19 mEq/L (20-26); Blood Gas Modality AF; Blood Gas VT 450 cc
[2021-10-16 15:42] VITALS: O2SAT 90
[2021-10-16 15:59] LABS: Immature Platelets 7.9 % (1.1-6.1); Mean Corpuscular HGB Conc 30.8 g/dL (31.6-35.5); Mean Corpuscular Hemoglobin 26.3 pg (28.0-33.3); Mean Corpuscular Volume 85.5 fL (83.0-100.0); Mean Platelet Volume 10.3 fL (9.4-12.4); Red Blood Count 3.04 M/mcL (3.82-4.97); Red Cell Distribution Width 19.1 % (11.5-14.5)
[2021-10-16] MEDS ORDERED: Midazolam HCl 50 MG/100 ML IV.SOLN IVC SCH (16:00)
[2021-10-16 16:04] LABS: Platelet Count 39 K/mcL (140-400)
[2021-10-16 16:13] LABS: Activated Partial Thrombo Time 84.1 Seconds (26.0-36.0); INR 2.2; Prothrombin Time 24.4 Seconds (9.4-12.1)
[2021-10-16 16:19] LABS: Lymphocytes # 3.9 K/mcL (0.6-4.6); Monocytes # 0.6 K/mcL (0.0-1.3); Neutrophils # 10.5 K/mcL (1.6-8.9)
[2021-10-16 16:22] LABS: Calcium 7.7 mg/dL (8.6-10.3); Magnesium 4.1 mg/dL (1.6-2.6); Polychromasia 1+ (Not Present); Reactive Lymphocytes Present (Not Present); Smudge Cells Present (Not Present)
[2021-10-16] MEDS: EPINEPHrine 1 MG in D5% in Water 250 ML IVC SCH ×4 (16:25→20:35)
[2021-10-16] MEDS ORDERED: Hydrocortisone Sodium Succ 100 MG/2 ML VIAL IVP ONE (16:30)
[2021-10-16 16:31] LABS: ABG Base Excess -9 mEq/L (-2 to 3); ABG HCO3 18 mEq/L (21-27); ABG Oxygen Saturation 94 % (95-98); ABG PCO2 41 mmHg (35-45); ABG PH 7.25 pH Units (7.32-7.45); ABG PO2 80 mmHg (85-104); ABG TCO2 19 mEq/L (20-26); Blood Gas Modality AF; Blood Gas VT 450 cc
[2021-10-16] MEDS: *HR* Dextrose 50 % in Water (Syg) 50 ML SYRINGE IVP PRN ×2 (16:40→18:14)
[2021-10-16 17:31] VITALS: TEMP 92.5
[2021-10-16] MEDS ORDERED: Famotidine 20 MG/2 ML VIAL IVP SCH ×2 (18:00)
[2021-10-16] MEDS ORDERED: Metoclopramide 10 MG/2 ML VIAL IVP SCH ×2 (18:00)
[2021-10-16] MEDS ORDERED: Clindamycin 900 MG/50 ML 900 MG/50 ML IV.SOLN IVPB SCH (18:00)
[2021-10-16] MEDS ORDERED: ceFAZolin 2,000 MG in 0.9 % Sodium Chloride 100 ML IVPB SCH (18:00)
[2021-10-16] MEDS ORDERED: *HR* Heparin 5,000 UNIT/ML VIAL SQ SCH (18:00)
[2021-10-16 19:42] LABS: ABG Base Excess -24 mEq/L (-2 to 3); ABG HCO3 7 mEq/L (21-27); ABG Oxygen Saturation 98 % (95-98); ABG PCO2 36 mmHg (35-45); ABG PO2 167 mmHg (85-104); ABG TCO2 8 mEq/L (20-26); Blood Gas VT 450 cc
[2021-10-16 20:10] VITALS: PULSE 90
[2021-10-16] MEDS ORDERED: 0.9 % Sodium Chloride 250 ML ONE (20:35)
[2021-10-16] MEDS ORDERED: Chlorhexidine Rinse 15 ML MOUTHWASH MM SCH ×3 (21:00)
[2021-10-16 21:09] VITALS: BP 34/27
[2021-10-16] MEDS ORDERED: Calcium Chloride 2,000 MG in 0.9 % Sodium Chloride 100 ML IVPB ONE (21:11)
[2021-10-16 21:22] LABS: Albumin 1.9 g/dL (3.5-5.7); Bilirubin,Direct 1.2 mg/dL (0.0-0.2); Bilirubin,Indirect 0.5 mg/dL (0.0-1.0); Bilirubin,Total 1.7 mg/dL (0.3-1.0); Magnesium 3.8 mg/dL (1.6-2.6); Phosphorous 14.7 mg/dL (2.7-4.5); Potassium 6.6 mEq/L (3.5-5.1); Total Protein 3.9 g/dL (6.4-8.9)
[2021-10-16] MEDS ORDERED: EPINEPHrine 5 MG in D5% in Water 250 ML IVC SCH (21:30)
[2021-10-16] MEDS ORDERED: *HR* Phenylephrine 10 MG/ML VIAL IVC ONE (21:37)
[2021-10-16] MEDS ORDERED: Lidocaine 2% Syringe 100 MG/5 ML IVP ONE (21:37)
[2021-10-16] MEDS ORDERED: *HR* Magnesium Sulfate 2 GM/50 ML PIGGYBACK IVPB ONE (21:37)
[2021-10-16] MEDS ORDERED: Heparin 1,000 UNITS/500 mL IV.SOLN IR ONE (21:37)
[2021-10-16] MEDS ORDERED: EPINEPHrine 1 MG/ML VIAL IV ONE (21:37)
[2021-10-16] MEDS ORDERED: Albumin Human 25% 25 GM/100 ML IV.SOLN IVPB ONE (21:37)
[2021-10-16] MEDS ORDERED: Mannitol 25% vial 12.5 GM/50 ML VIAL IVPB ONE (21:37)
[2021-10-16] MEDS ORDERED: *HR* Heparin 10,000 UNIT/10 ML VIAL IR ONE (21:37)
[2021-10-16] MEDS ORDERED: Tranexamic Acid 1,000 MG/10 ML VIAL IR ONE (21:37)
[2021-10-16] MEDS ORDERED: D5% in Water 250 ML IV BAG IV ONE (21:37)
[2021-10-17] MEDS ORDERED: Pantoprazole 40 MG VIAL IVP SCH (09:00)
[2021-10-17] MEDS ORDERED: Hydrocortisone Sodium Succ 100 MG/2 ML VIAL IVP SCH (16:04)
== END 2021-10-16 21:38 | disposition expired | DRG 710 ==
LOC: 2NNU 20:08 → EMEROOARM 20:08 → SUATTDRO 10-13 04:42 → 2NNU 10-13 05:10 → ICNU 10-13 08:53
PROVIDERS: ADMIT Student in an Organized Health Care Education/Training Program; ATTEND General Practice